=== PATIENT | female | born 1980 | race Caucasian/White ===

== ENCOUNTER 2018-02-12 23:36 | Emergency (ER) | payer SELFPAY ==
--- NOTE | 2018-02-13 05:23 | C.PDOC ---
History Of Present Illness 37 year old female presents to the ER with a complaint of abdominal pain, mostly epigastric. Denies fever, vomiting, or diarrhea. History Per: Patient History/Exam Limitations: no limitations Onset/Duration Of Symptoms: Hrs Current Symptoms Are (Timing): Still Present Associated Symptoms: denies: Fever, Vomiting, Diarrhea Exacerbating Factors: None Alleviating Factors: None Recent travel outside of the [place]: No Abnormal Vaginal Bleeding: No Past Medical History Reviewed: Historical Data, Nursing Documentation, Vital Signs - Medical History PMH: No Chronic Diseases Surgical History: No Surg Hx Family History: States: Unknown Family Hx - Social History Hx Tobacco Use: No Hx Alcohol Use: No Hx Substance Use: No - Immunization History Hx Influenza Vaccination: No Hx Pneumococcal Vaccination: No Review Of Systems Constitutional: Negative for: Fever Cardiovascular: Negative for: Chest Pain, Palpitations Respiratory: Negative for: Cough, Shortness of Breath Gastrointestinal: Positive for: Abdominal Pain. Negative for: Vomiting, Diarrhea Neurological: Negative for: Weakness, Numbness Physical Exam - Physical Exam Appears: Non-toxic Skin: Normal Color, Warm, Dry Head: Atraumatic, Normacephalic Eye(s): bilateral: Normal Inspection Oral Mucosa: Moist Chest: Symmetrical, No Tenderness Cardiovascular: Rhythm Regular Respiratory: Normal Breath Sounds, No Rales, No Rhonchi, No Wheezing Gastrointestinal/Abdominal: Soft, Tenderness (Epigastric), No Guarding, No Rebound Back: No CVA Tenderness Neurological/Psych: Oriented x3, Normal Speech ED Course And Treatment - Laboratory Results Result Diagrams: 02/13/18 08:45 02/13/18 08:45 Progress Note: See paper orders Disposition Counseled Patient/Family Regarding: Diagnosis - Disposition Referrals: [facility] [Outside] Disposition: HOME/ ROUTINE Disposition Time: 05:30 Condition: STABLE Prescriptions: Nitrofurantoin Macrocrystals [Macrobid] 1 cap PO BID #14 cap Instructions: Urinary Tract Infection, Adult (DC), - The Second Month Print Language: FILIPINO - POA Present On Arrival: None - Clinical Impression Clinical Impression: , UTI (urinary tract infection) during - Scribe Statement The provider has reviewed the documentation as recorded by the Scribe Pal [place] All medical record entries made by the Scribe were at my direction and personally dictated by me. I have reviewed the chart and agree that the record accurately reflects my personal performance of the history, physical exam, medical decision making, and the department course for this patient. I have also personally directed, reviewed, and agree with the discharge instructions and disposition.
[2018-02-13 05:55] VITALS: BP 132/84; PULSE 84; RESP 20; TEMP 98; O2SAT 98
[2018-02-13 10:02] LABS: HEMOGLOBIN 13.1 g/dL (11.0-16.0); MEAN CELL VOLUME 89.9 fL (81.0-99.0); MEAN CORPUSCULAR HEMOGLOBIN 30.7 pg (27.0-31.0); MEAN CORPUSCULAR HGB CONC 34.1 g/dL (33.0-37.0); MEAN PLATELET VOLUME 7.9 fL (7.2-11.7); RBC 4.26 Mil/uL (3.80-5.20); RED CELL DISTRIBUTION WIDTH 13.4 % (11.5-14.5); WHITE BLOOD COUNT 7.6 K/uL (4.8-10.8)
--- NOTE | 2018-02-13 10:35 | US ---
Date of service: 02/13/2018 HISTORY: ABDOMINAL PAIN COMPARISON: Abdominal and pelvic ultrasound 02/02/2015 TECHNIQUE: Sonographic evaluation of the abdomen. FINDINGS: LIVER: Measures 14.4 cm. Normal echogenicity of the liver parenchyma. No mass. No intrahepatic bile duct dilatation. GALLBLADDER: Unremarkable. No gallstones. COMMON BILE DUCT: Measures 3.6 mm. No stones. No dilatation. PANCREAS: Extensive gas-pancreas not visualized RIGHT KIDNEY: No right upper quadrant abdominal kidney visualized. As before in the right lower quadrant a right kidney is noted measuring 9.1 x 4.0 x 4.2 cm. No hydronephrosis of it or mass or shadowing stones are seen.. There is some punctate non shadowing hyper echogenicities within it. Grossly this is slightly more conspicuous compared to the 2014 study. LEFT KIDNEY: Measures 10.8 x 5.2 x 4.6 cm normal echogenicity. No calculus, mass, or hydronephrosis. SPLEEN: Normal in size and contour. No mass. AORTA: No aneurysmal dilatation. IVC: Unremarkable. OTHER FINDINGS: None. IMPRESSION: No gallbladder pathology noted. Nonvisualized pancreas. Similar positioned right kidney without hydronephrosis or renal mass-in the right lower quadrant. No normal appearing kidney in the right renal fossa.-findings as above. Left kidney unremarkable. Concordant results (preliminary interpretation) provided by [employer].
[2018-02-13 11:41] LABS: ALB/GLOB RATIO 1.2 (1.0-2.1); ALBUMIN 3.9 g/dL (3.5-5.0); BLOOD UREA NITROGEN 10 mg/dL (7-17); CALCIUM 8.6 mg/dl (8.6-10.4); GFR NON-AFRICAN AMERICAN > 60
[2018-02-13 11:42] LABS: ALT/SGPT 51 U/L (9-52); AST/SGOT 30 U/L (14-36); LIPASE 47 U/L (23-300)
--- NOTE | 2018-02-13 13:24 | US ---
Date of service: 02/13/2018 PROCEDURE: Transabdominal and transvaginal HISTORY: ABD PAIN LMP 12/16/2017 COMPARISON: None TECHNIQUE: Transabdominal and transvaginal FINDINGS: Prior examinations from the current :None TECHNIQUE: Real-time 2D imaging, duplex and color Doppler. FINDINGS: Cardiac activity: Present Rate: 147BPM Measurements: [place] rump length: 1.03 cmcm Gestational age based on CRL 7 weeks 1 day Gestational age based on gestational sac measurement mean sac diameter 1.71 cm; 6 weeks 0 days Gestational age derived from LMP: Not provided KIM based on LMP:Not provided KIM based on biometry: 6 weeks 4 days +/-0 weeks 3 days with an estimated date of delivery of 10/05/2018 Gestational concordance documented Yolk sac present at 0.55 cmuterus: Unremarkable. No Cervical abnormalities: Negative examination for cervical dilatation or effacement. Subchorionic hemorrhage: None ADNEXA: Right: Ovary 2.5 x 1.6 x 1.6 cm. Normal Doppler arterial waveform documented. Left: Ovary 2.4 x 2.1 x 2.1 cm. normal Doppler arterial waveform documented Fluid in the cul-de-sac: None IMPRESSION: Single intrauterine gestation with normal cardiac activity whose menstrual age by ultrasound parameters is 6 weeks 4 days +/-0 weeks 3 days with an estimated date of delivery by ultrasound of 10/05/2018. Concordant results (preliminary interpretation) provided by [facility].
== END 2018-02-13 05:52 | disposition home or self-care (01) ==
LOC: C.ER 23:36
DX: O23.41 Unspecified infection of urinary tract in pregnancy, first trimester (principal); Z3A.01 Less than 8 weeks gestation of pregnancy